=== PATIENT | male | born 1970 | race Caucasian/White ===

== ENCOUNTER → 2020-05-09 11:08 | Outpatient (CLI) | payer SELFPAY ==
--- NOTE | ~2020-05-09 | XR_ITS ---
XR foot RT min 3V DATE: 05/09/2020 11:40 INDICATION: Right foot pain TECHNIQUE: 4 views COMPARISON: None FINDINGS: There is a transverse fracture of proximal shaft of the proximal phalanx of the fifth digit with approximately one cortical width medial displacement, minimal angulation. No other fracture or dislocation. No periosteal reaction or bone destruction. Plantar calcaneal enthesopathy. IMPRESSION: Fracture of proximal shaft of proximal phalanx of fifth digit Plantar calcaneal enthesopathy Reviewed, dictated and finalized at location B.
== END ==
PROVIDERS: PCP Family Medicine; Visit Provider Nurse Practitioner Psychiatric/Mental Health
DX: M79.671 Pain in right foot (principal); S92.511A Displaced fracture of proximal phalanx of right lesser toe(s), initial encounter for closed fracture; M77.31 Calcaneal spur, right foot
CPT/HCPCS: 73630

== ENCOUNTER → 2020-06-02 11:25 | Outpatient (CLI) | payer SELFPAY ==
--- NOTE | ~2020-06-02 | XR_ITS ---
XR foot RT min 3V DATE: 06/02/2020 12:34 INDICATION: Closed fracture of proximal phalanx of fifth toe TECHNIQUE: 4 views COMPARISON: 05/09/2020 right foot FINDINGS: No interval change in position or alignment at the transverse minimally displaced fracture at the junction of the metaphysis and proximal shaft of the proximal phalanx of the fifth digit. Mild osteoarthritis at the first metatarsophalangeal joint. Plantar calcaneal enthesopathy. IMPRESSION: Fifth digit proximal phalangeal fracture without significant change in position or alignm ent since 05/09/2020 No fracture line is less lucent and diminished in width, likely due to some interval healing Reviewed, dictated and finalized at location A. IMPRESSION: Fifth digit proximal phalangeal fracture without significant change in position or alignment since 05/09/2020 No fracture line is less lucent and diminished in width, likely due to some int erval healing
== END ==
PROVIDERS: PCP Family Medicine; Visit Provider Nurse Practitioner Family
DX: S92.511D Displaced fracture of proximal phalanx of right lesser toe(s), subsequent encounter for fracture with routine healing (principal); X58.XXXD Exposure to other specified factors, subsequent encounter
CPT/HCPCS: 73630

== ENCOUNTER → 2021-02-13 11:31 | Outpatient (CLI) | payer SELFPAY ==
--- NOTE | ~2021-02-13 | XR_ITS ---
[id number] DATE: 02/13/2021 12:04 INDICATION: Rib pain TECHNIQUE: PA chest. 3 views of left wrist. 3 views of right ribs. COMPARISON: None FINDINGS: Normal heart size. No hilar or mediastinal enlargement. No pulmonary infiltrate or consolid ation, pleural effusion or pulmonary vascular congestion or pneumothorax. No recent left or right rib fractures are evident. There is levoscoliosis of the upper thoracic spine and dextro scoliosis of the lower thoracic spine. IMPRESSION: No recent rib fracture detected Thoracic scoliosis Reviewed, dictated and finalized at [facility]. Reviewed, dictated and finalized at location A. [employer] PROVIDER RELATIONS
== END ==
PROVIDERS: PCP Family Medicine; Visit Provider Family Medicine
DX: R07.81 Pleurodynia (principal); M41.9 Scoliosis, unspecified
CPT/HCPCS: 71111